=== PATIENT | female | born 2000 | race Caucasian/White ===

== ENCOUNTER 2020-04-28 09:51 | Outpatient (CLI) | payer MEDICAID | END 2020-04-28 14:05 | disposition home or self-care (01) | LOC: LAB 09:51 → APU 13:30 → LAB 14:05 | PROVIDERS: ATTEND Obstetrics & Gynecology | DX: O26.893 Other specified pregnancy related conditions, third trimester (principal); Z67.11 Type A blood, Rh negative; Z3A.33 33 weeks gestation of pregnancy | CPT/HCPCS: 86850; 86900; 86901; J2790; 96372 ==